=== PATIENT | male | born 1955 | race Caucasian/White ===

== ENCOUNTER 2016-12-22 18:31 | Emergency (ER) | payer OTHER ==
[~2016-12-22] VITALS: Ht 182.9 cm; Wt 74.4 kg
[2016-12-22] MEDS ORDERED: LABETALOL 20 MG/4 ML VIAL ONE (18:58)
[2016-12-22] MEDS ORDERED: LABETALOL 20 MG/4 ML VIAL IV ONE (19:00)
--- NOTE | 2016-12-22 19:02 | NUR ---
REPORT REC'D FROM MOISÉS DAMICO FOR [facility].
[2016-12-22 19:05] LABS: BASOPHILS % (AUTO) 0.5 % (0.0-2.0); EOSINOPHILS # (AUTO) 0.2 /CMM (0.0-0.7); EOSINOPHILS % (AUTO) 1.9 % (0.0-6.0); HEMATOCRIT 51 % (39-51); HEMOGLOBIN 16.6 g/dL (13.5-17.5); LYMPHOCYTES # (AUTO) 2.2 /CMM (0.8-4.8); LYMPHOCYTES % (AUTO) 23.7 % (20.0-44.0); MEAN CORPUSCULAR HEMOGLOBIN 28 PG (26.0-33.0); MEAN CORPUSCULAR HGB CONC 33 g/dl (31.0-36.0); MEAN CORPUSCULAR VOLUME 84 fL (80-96); MONOCYTES # (AUTO) 0.4 /CMM (0.1-1.30); MONOCYTES % (AUTO) 4.5 % (2.0-12.0); NEUTROPHILS # (AUTO) 6.7 /CMM (1.8-8.9); NEUTROPHILS % (AUTO) 69.4 % (43.0-81.0); PLATELET COUNT (AUTO) 247 /CMM (150-450); RDW COEFFICIENT OF VARIATION 13.7 (11.5-15.0); RED BLOOD CELL COUNT(AUTO) 5.98 MIL/uL (4.5-6.0); WHITE BLOOD COUNT (AUTO) 9.5 K/uL (4.3-11.0)
[2016-12-22 19:13] LABS: CALCIUM, SERUM 9.6 mg/dL (8.5-10.1); CREATININE 1.1 mg/dL (0.6-1.3); POTASSIUM 3.4 mmol/L (3.5-5.1)
--- NOTE | 2016-12-22 19:21 | NUR ---
PT STATED THAT HE FEELS BETTER. "MY HEADACHE IS GONE".
[2016-12-22 19:25] LABS: INR 1.06 (0.87-1.13); PROTHROMBIN TIME 11.4 SECS (9.5-12.7)
[2016-12-22 19:46] VITALS: BP 155/99
[2016-12-22] MEDS ORDERED: POTASSIUM CHLORIDE 20 MEQ TAB.PRT.SR PO ONE (20:00)
== END 2016-12-22 19:47 | disposition home or self-care (01) ==
LOC: ER 18:33
DX: I10 Essential (primary) hypertension (principal); E87.6 Hypokalemia; F17.200 Nicotine dependence, unspecified, uncomplicated; R79.1 Abnormal coagulation profile; Z87.442 Personal history of urinary calculi
CPT/HCPCS: 36415; 70450; 80048; 85025; 85730; 96374; 99285; A4606; J3490; Z7610

== ENCOUNTER 2017-09-17 20:43 | Emergency (ER) | payer OTHER ==
[~2017-09-17] VITALS: Ht 182.9 cm; Wt 74.8 kg
[2017-09-17 20:43] VITALS: BP 158/94
[2017-09-17 21:25] LABS: BASOPHILS # (AUTO) 0.2 /CMM (0.0-0.2); BASOPHILS % (AUTO) 1.4 % (0.0-2.0); EOSINOPHILS % (AUTO) 0.2 % (0.0-6.0); HEMATOCRIT 45 % (39-51); HEMOGLOBIN 15.2 g/dL (13.5-17.5); MEAN CORPUSCULAR HEMOGLOBIN 28 PG (26.0-33.0); MEAN CORPUSCULAR HGB CONC 34 g/dl (31.0-36.0); MEAN CORPUSCULAR VOLUME 83 fL (80-96); MONOCYTES # (AUTO) 0.8 /CMM (0.1-1.30); MONOCYTES % (AUTO) 6.9 % (2.0-12.0); NEUTROPHILS # (AUTO) 10.3 /CMM (1.8-8.9); NEUTROPHILS % (AUTO) 83.5 % (43.0-81.0); PLATELET COUNT (AUTO) 292 /CMM (150-450); RDW COEFFICIENT OF VARIATION 13.2 (11.5-15.0); RED BLOOD CELL COUNT(AUTO) 5.48 MIL/uL (4.5-6.0); WHITE BLOOD COUNT (AUTO) 12.3 K/uL (4.3-11.0)
[2017-09-17] MEDS ORDERED: CEFTRIAXONE 1GM BAG (ER ONLY) 50 ML IV ONE (21:30)
[2017-09-17] MEDS ORDERED: IPRATROPIUM NEB FS 0.5 MG/2.5 ML AMPUL.NEB NEB ONE (21:30)
[2017-09-17] MEDS ORDERED: HYDROCODONE BIT/HOMATROPINE 5 ML UDC PO ONE (21:30)
[2017-09-17] MEDS ORDERED: IV NS 0.9% 1,000 ML BAG IV ONE (21:30)
[2017-09-17] MEDS ORDERED: methylPREDNISolone SOD SUCC 125 MG/2ML VIAL IV ONE (21:30)
[2017-09-17] MEDS ORDERED: AZITHROMYCIN 500 MG in IV D5W 250 ML IV ONE (21:30)
[2017-09-17] MEDS ORDERED: ALBUTEROL FS 2.5 MG/3 ML VIAL.NEB CONTNEB ONE (21:30)
[2017-09-17] MEDS ORDERED: ONDANSETRON HCL/PF 4 MG/2 ML VIAL IVP ONE (21:30)
[2017-09-17] MEDS ORDERED: ACETAMINOPHEN ES 500 MG TABLET PO ONE (21:30)
[2017-09-17 21:31] LABS: CALCIUM, SERUM 9.5 mg/dL (8.5-10.1); CARBON DIOXIDE 25 mmol/L (21-32); CHLORIDE 104 mmol/L (98-107); CREATININE 1.4 mg/dL (0.6-1.3); GLUCOSE 94 mg/dL (74-106); POTASSIUM 3.8 mmol/L (3.5-5.1); SODIUM SERUM 138 mmol/L (136-145); UREA NITROGEN, BLOOD 20 mg/dL (7-18)
[2017-09-17 21:39] LABS: TROPONIN I < 0.017 ng/mL (0.00-0.056)
[2017-09-17 21:44] LABS: ALANINE AMINOTRANSFERASE 14 U/L (12-78); ALBUMIN 3.7 g/dL (3.4-5.0); ALKALINE PHOSPHATASE 63 U/L (46-116); ASPARTATE AMINOTRANSFERASE 20 U/L (15-37); B-TYPE NATRIURETIC PEPTIDE 357 PG/ML (0-125); BILIRUBIN,DIRECT 0.1 mg/dL (0.0-0.2); BILIRUBIN,TOTAL 0.6 mg/dL (0.2-1.0)
[2017-09-17] MEDS ORDERED: methylPREDNISolone SOD SUCC 125 MG/2ML VIAL ONE (21:46)
[2017-09-17] MEDS ORDERED: ONDANSETRON HCL/PF 4 MG/2 ML VIAL ONE (21:46)
[2017-09-17] MEDS ORDERED: ACETAMINOPHEN ES 500 MG TABLET ONE (21:46)
[2017-09-17] MEDS ORDERED: CEFTRIAXONE 1 G VIAL ONE (21:46)
[2017-09-17] MEDS ORDERED: ALBUTEROL FS 2.5 MG/3 ML VIAL.NEB ONE (21:52)
--- NOTE | 2017-09-17 21:54 | NUR ---
COREY, EMT CALLED AND SPOKJE WITH PT'S FAMILY. PT DECIDED TO GET SERVICE AT ANOTHER HOSPITAL
--- NOTE | 2017-09-17 21:54 | NUR ---
Patient eloped from facility. ER MD notified.
--- NOTE | 2017-09-17 22:05 | NUR ---
MED ERROR. PT LEFT BEFORE ADMIN OF 10MG ALBUTEROL RESP TX. Addendum: 09/17/17 at 2205 by ARNOLDO ZARATE RT Amended: Links added.
== END 2017-09-17 21:56 | disposition left against medical advice (07) ==
LOC: ER 20:44
DX: R07.89 Other chest pain (principal); B34.9 Viral infection, unspecified; J06.9 Acute upper respiratory infection, unspecified; I10 Essential (primary) hypertension; F17.200 Nicotine dependence, unspecified, uncomplicated; Z87.442 Personal history of urinary calculi
CPT/HCPCS: 36415; 71045; 80048; 80076; 83880; 84484; 85025; 87040 ×2; 93005; 99285; A4606; J0696; J7030; J7060; Z7610; J2405; J2930

== ENCOUNTER 2020-10-31 12:51 | Emergency (ER) | payer OTHER ==
[~2020-10-31] VITALS: Ht 182.9 cm; Wt 73.9 kg
--- NOTE | 2020-10-31 12:55 | NUR ---
pt bib son c/o headache and been noticing that his blood pressure always high w/ systolic over 200. pt denies any weakness. but states was dizzy earlier. no neuro deficit noted upon initial assessment. awaitng md carlton.
--- NOTE | 2020-10-31 13:00 | NUR ---
dr east at bedside for eval.
--- NOTE | 2020-10-31 13:15 | NUR ---
pt to radiology for head ct scan via wheelchair.
--- NOTE | 2020-10-31 13:54 | NUR ---
laboratory animal caretaker at bedside for blood draw.
[2020-10-31] MEDS ORDERED: CLONIDINE HCL 0.1 MG TABLET ONE (13:55)
[2020-10-31] MEDS ORDERED: ACETAMINOPHEN ES 500 MG TABLET ONE (13:55)
[2020-10-31 13:59] LABS: BASOPHILS # (AUTO) 0.1 /CMM (0.0-0.2); BASOPHILS % (AUTO) 0.6 % (0.0-2.0); EOSINOPHILS % (AUTO) 0.4 % (0.0-6.0); HEMATOCRIT 47 % (39-51); HEMOGLOBIN 15.5 g/dL (13.5-17.5); LYMPHOCYTES # (AUTO) 1.7 /CMM (0.8-4.8); LYMPHOCYTES % (AUTO) 15.9 % (20.0-44.0); MEAN CORPUSCULAR HGB CONC 33 g/dl (31.0-36.0); MEAN CORPUSCULAR VOLUME 87 fL (80-96); MONOCYTES # (AUTO) 0.3 /CMM (0.1-1.30); MONOCYTES % (AUTO) 3.1 % (2.0-12.0); NEUTROPHILS # (AUTO) 8.7 /CMM (1.8-8.9); PLATELET COUNT (AUTO) 246 /CMM (150-450); RED BLOOD CELL COUNT(AUTO) 5.43 MIL/uL (4.5-6.0); WHITE BLOOD COUNT (AUTO) 10.9 K/uL (4.3-11.0)
[2020-10-31] MEDS: ACETAMINOPHEN 325 MG TABLET PO ONE (14:13)
[2020-10-31] MEDS: CLONIDINE HCL 0.1 MG TABLET PO ONE (14:13)
[2020-10-31 14:18] LABS: ALANINE AMINOTRANSFERASE 23 U/L (12-78); ALKALINE PHOSPHATASE 73 U/L (46-116); ASPARTATE AMINOTRANSFERASE 31 U/L (15-37); BILIRUBIN,DIRECT 0.1 mg/dL (0.0-0.2); BILIRUBIN,TOTAL 0.4 mg/dL (0.2-1.0); CALCIUM, SERUM 9.2 mg/dL (8.5-10.1); CARBON DIOXIDE 31 mmol/L (21-32); CHLORIDE 104 mmol/L (98-107); CREATININE 1.3 mg/dL (0.6-1.3); GLUCOSE 96 mg/dL (74-106); POTASSIUM 4.2 mmol/L (3.5-5.1); SODIUM SERUM 143 mmol/L (136-145); TOTAL PROTEIN, SERUM 7.8 g/dL (6.4-8.2); UREA NITROGEN, BLOOD 23 mg/dL (7-18)
--- NOTE | 2020-10-31 15:47 | NUR ---
Patient discharged to home in stable condition. Written and verbal after care instructions given. Patient verbalizes understanding of instruction.
[2020-10-31 15:48] VITALS: BP 155/90
== END 2020-10-31 15:49 | disposition home or self-care (01) ==
LOC: ER 12:53
DX: I10 Essential (primary) hypertension (principal); R51.9 Headache, unspecified; R42 Dizziness and giddiness; R00.1 Bradycardia, unspecified; F10.10 Alcohol abuse, uncomplicated; F17.200 Nicotine dependence, unspecified, uncomplicated; Y90.9 Presence of alcohol in blood, level not specified; Z79.82 Long term (current) use of aspirin; Z87.442 Personal history of urinary calculi; Z98.890 Other specified postprocedural states
CPT/HCPCS: 36415; 70450-TC; 71045-TC; 80048-TC; 80076-TC; 84484-TC; 85025-TC

== ENCOUNTER 2021-10-10 13:02 | Emergency (ER) | payer OTHER ==
[~2021-10-10] VITALS: Ht 180.3 cm; Wt 72.6 kg
[2021-10-10 13:19] VITALS: BP 156/102
[2021-10-10] MEDS ORDERED: TDAP [DIPH/PERTUSSIS/TET] 0.5 ML VIAL IM ONE (14:30)
== END 2021-10-10 14:33 | disposition home or self-care (01) ==
LOC: ER 13:05
DX: S61.211A Laceration without foreign body of left index finger without damage to nail, initial encounter (principal); I10 Essential (primary) hypertension; F17.200 Nicotine dependence, unspecified, uncomplicated; Z87.442 Personal history of urinary calculi; W26.8XXA Contact with other sharp object(s), not elsewhere classified, initial encounter; Y93.89 Activity, other specified; Y92.89 Other specified places as the place of occurrence of the external cause; Y99.8 Other external cause status

== ENCOUNTER 2024-11-17 10:31 | Inpatient (IN) | payer MEDICARE, OTHER ==
[~2024-11-17] VITALS: Ht 180.3 cm; Wt 73.7 kg
[~2024-11-17 10:31] MED LIST: AMLO-212 PO; ASPI-1420 PO; CARV6.252 PO; FINA5TAB11 PO; HYDR-4076 PO; HYDR-4077 PO; METO25TA20 PO; NIFE-35 PO; NITR0.4T48 SL; PANT40TA49 PO; SIMV-49 PO; TAMS-12 PO
[2024-11-17 10:52] LABS: BASOPHILS % (AUTO) 0.6 % (0.0-2.0); EOSINOPHILS # (AUTO) 0.2 K/uL (0.0-0.7); EOSINOPHILS % (AUTO) 2.4 % (0.0-6.0); HEMATOCRIT 49 % (39-51); LYMPHOCYTES # (AUTO) 1.7 K/uL (0.8-4.8); LYMPHOCYTES % (AUTO) 26.6 % (20.0-44.0); MEAN CORPUSCULAR HEMOGLOBIN 28 PG (26.0-33.0); MEAN CORPUSCULAR HGB CONC 33 g/dl (31.0-36.0); MEAN CORPUSCULAR VOLUME 86 fL (80-96); MONOCYTES # (AUTO) 0.3 K/uL (0.1-1.30); MONOCYTES % (AUTO) 4.5 % (2.0-12.0); NEUTROPHILS # (AUTO) 4.2 K/uL (1.8-8.9); NEUTROPHILS % (AUTO) 65.9 % (43.0-81.0); PLATELET COUNT (AUTO) 288 K/uL (150-450); RED BLOOD CELL COUNT(AUTO) 5.71 MIL/uL (4.5-6.0); RED CELL DISTRIBUTION WIDTH 14.4 % (11.5-15.0); WHITE BLOOD COUNT (AUTO) 6.4 K/uL (4.3-11.0)
[2024-11-17 11:02] LABS: CALCIUM, SERUM 9.1 mg/dL (8.5-10.1); CARBON DIOXIDE 30 mmol/L (21-32); CHLORIDE 107 mmol/L (98-107); CREATININE 2.1 mg/dL (0.6-1.3); GLUCOSE 155 mg/dL (74-106); POTASSIUM 4.2 mmol/L (3.5-5.1); SODIUM SERUM 141 mmol/L (136-145); UREA NITROGEN, BLOOD 21 mg/dL (7-18)
[2024-11-17] MEDS ORDERED: NITR0.4T48 SL (11:52)
[2024-11-17] MEDS ORDERED: CARV6.252 PO (11:52)
[2024-11-17] MEDS ORDERED: HYDR-4077 PO (11:52)
[2024-11-17] MEDS ORDERED: Z GUARD REMEDY 4 OZ OINT TP PRN (12:00)
[2024-11-17] MEDS ORDERED: MAGNESIUM HYDROXIDE 30 ML UDC PO PRN (12:00)
[2024-11-17] MEDS ORDERED: ONDANSETRON HCL/PF 4 MG/2 ML VIAL IVP PRN (12:00)
[2024-11-17] MEDS ORDERED: MAG HYDROX/AL HYDROX/SIMETH 30 ML UDC PO PRN (12:00)
[2024-11-17] MEDS ORDERED: MAG HYDROX/AL HYDROX/SIMETH 30 ML UDC ONE (12:03)
[2024-11-17] MEDS ORDERED: FAMOTIDINE/PF INJ 20 MG/2 ML VIAL IV ONE (12:04)
[2024-11-17] MEDS ORDERED: ASPIRIN 81 MG TAB.CHEW ONE ×2 (12:04→12:16)
[2024-11-17] MEDS ORDERED: LIDOCAINE VISCOUS 2% UD 15 ML UDC ONE (12:04)
[2024-11-17] MEDS: FAMOTIDINE/PF INJ 20 MG/2 ML VIAL IV ONE (12:12)
[2024-11-17] MEDS: MAG HYDROX/AL HYDROX/SIMETH 30 ML UDC PO ONE (12:13)
[2024-11-17] MEDS: LIDOCAINE VISCOUS 2% UD 15 ML UDC MM ONE (12:13)
[2024-11-17] MEDS: ASPIRIN 81 MG TAB.CHEW PO ONE (12:25)
[2024-11-17] MEDS: CARVEDILOL 6.25 MG TABLET PO SCH (14:00)
[2024-11-17] MEDS: ASPIRIN EC 81 MG TABLET.DR PO SCH (17:39)
[2024-11-17] MEDS: hydrALAZINE HCL 50 MG TABLET PO SCH (17:39)
[2024-11-17] MEDS: FAMOTIDINE (20 MG) 20 MG TABLET PO SCH (17:41)
[2024-11-17] MEDS: FINASTERIDE (5 MG) 5 MG TABLET PO SCH (17:41)
[2024-11-17] MEDS: AMLODIPINE BESYLATE 5 MG TABLET PO SCH (17:41)
[2024-11-17] MEDS: IV NS 0.9% 1,000 ML BAG IV PRN (17:42)
[2024-11-17 20:00] VITALS: BP 160/90; TEMP 98.4; O2SAT 100
[2024-11-18] VITALS: BP 168/80; TEMP 98.1; O2SAT 98
[2024-11-18 05:00] VITALS: BP 130/80; TEMP 97.7; O2SAT 96
[2024-11-18 06:11] LABS: BASOPHILS # (AUTO) 0.1 K/uL (0.0-0.2); BASOPHILS % (AUTO) 0.9 % (0.0-2.0); EOSINOPHILS # (AUTO) 0.2 K/uL (0.0-0.7); EOSINOPHILS % (AUTO) 2.1 % (0.0-6.0); HEMATOCRIT 45 % (39-51); HEMOGLOBIN 14.9 g/dL (13.5-17.5); LYMPHOCYTES # (AUTO) 2.7 K/uL (0.8-4.8); LYMPHOCYTES % (AUTO) 31.1 % (20.0-44.0); MEAN CORPUSCULAR HEMOGLOBIN 29 PG (26.0-33.0); MEAN CORPUSCULAR HGB CONC 33 g/dl (31.0-36.0); MEAN CORPUSCULAR VOLUME 86 fL (80-96); MONOCYTES # (AUTO) 0.6 K/uL (0.1-1.30); MONOCYTES % (AUTO) 7.4 % (2.0-12.0); NEUTROPHILS % (AUTO) 58.5 % (43.0-81.0); PLATELET COUNT (AUTO) 244 K/uL (150-450); RED BLOOD CELL COUNT(AUTO) 5.22 MIL/uL (4.5-6.0); RED CELL DISTRIBUTION WIDTH 14.2 % (11.5-15.0); WHITE BLOOD COUNT (AUTO) 8.5 K/uL (4.3-11.0)
[2024-11-18 06:26] LABS: CALCIUM, SERUM 8.8 mg/dL (8.5-10.1); CREATININE 1.6 mg/dL (0.6-1.3); PHOSPHORUS 3.6 mg/dL (2.5-4.9)
[2024-11-18 07:00] VITALS: BP 156/88; TEMP 97.5; O2SAT 97
[2024-11-18] MEDS ORDERED: AMLODIPINE BESYLATE 5 MG TABLET PO SCH (09:00)
[2024-11-18] MEDS ORDERED: ASPIRIN 81 MG TAB.CHEW PO SCH (09:00)
[2024-11-18] MEDS: AMLODIPINE BESYLATE 5 MG TABLET PO ONE (09:31)
[2024-11-18] MEDS: ATORVASTATIN 40 MG TABLET PO SCH (09:31)
[2024-11-18] MEDS: ISOSORBIDE DINITRATE (20MG) 20 MG TABLET PO SCH (09:32)
[2024-11-18] MEDS: IV NS 0.9% 1,000 ML IV PRN (09:55)
[2024-11-18 11:37] VITALS: BP 119/91; TEMP 97.7; O2SAT 97
[2024-11-18] MEDS: hydrALAZINE HCL 50 MG TABLET PO SCH (13:16)
[2024-11-18 16:00] VITALS: BP 133/86; TEMP 97.7; O2SAT 97
[2024-11-18] MEDS: ACETAMINOPHEN 325 MG TABLET PO PRN (16:14)
[2024-11-18 20:00] VITALS: BP 124/66; TEMP 98.1; O2SAT 96
[2024-11-19] VITALS: BP 114/66; TEMP 97.7; O2SAT 96
[2024-11-19 04:00] VITALS: BP 125/69; TEMP 97.9; O2SAT 95
[2024-11-19 06:20] LABS: BASOPHILS % (AUTO) 0.5 % (0.0-2.0); EOSINOPHILS # (AUTO) 0.2 K/uL (0.0-0.7); EOSINOPHILS % (AUTO) 2.3 % (0.0-6.0); HEMATOCRIT 41 % (39-51); HEMOGLOBIN 13.5 g/dL (13.5-17.5); LYMPHOCYTES # (AUTO) 2.7 K/uL (0.8-4.8); LYMPHOCYTES % (AUTO) 30.9 % (20.0-44.0); MEAN CORPUSCULAR HEMOGLOBIN 29 PG (26.0-33.0); MEAN CORPUSCULAR HGB CONC 33 g/dl (31.0-36.0); MEAN CORPUSCULAR VOLUME 86 fL (80-96); MONOCYTES # (AUTO) 0.7 K/uL (0.1-1.30); MONOCYTES % (AUTO) 7.6 % (2.0-12.0); NEUTROPHILS # (AUTO) 5.1 K/uL (1.8-8.9); NEUTROPHILS % (AUTO) 58.7 % (43.0-81.0); PLATELET COUNT (AUTO) 240 K/uL (150-450); RED BLOOD CELL COUNT(AUTO) 4.73 MIL/uL (4.5-6.0); RED CELL DISTRIBUTION WIDTH 13.8 % (11.5-15.0); WHITE BLOOD COUNT (AUTO) 8.7 K/uL (4.3-11.0)
[2024-11-19 06:46] LABS: ALBUMIN 3.1 g/dL (3.4-5.0); BILIRUBIN,TOTAL 0.5 mg/dL (0.2-1.0); CALCIUM, SERUM 8.8 mg/dL (8.5-10.1); CREATININE 1.8 mg/dL (0.6-1.3); TOTAL PROTEIN, SERUM 5.9 g/dL (6.4-8.2)
[2024-11-19] MEDS: AMLODIPINE BESYLATE 5 MG TABLET PO SCH (09:13)
[2024-11-19 09:27] VITALS: BP 147/89; TEMP 97.8; O2SAT 97
[2024-11-19] MEDS ORDERED: AMLO-212 PO (11:44)
[2024-11-19] MEDS ORDERED: HYDR-4077 PO (11:44)
[2024-11-19] MEDS ORDERED: FINA5TAB3 PO (11:44)
[2024-11-19] MEDS ORDERED: ATOR40TA PO (11:44)
[2024-11-19] MEDS ORDERED: CARV6.252 PO (11:44)
[2024-11-19] MEDS ORDERED: Aspirin Ec PO (11:44)
[2024-11-19] MEDS ORDERED: FAMO20TA80 PO (11:44)
[2024-11-19] MEDS ORDERED: ISOS40TA19 PO (11:44)
[2024-11-19 12:53] VITALS: BP 143/91; TEMP 98.9; O2SAT 96
[2024-11-19 13:39] VITALS: BP 140/74
== END 2024-11-19 15:18 | disposition home or self-care (01) | DRG 391 ==
LOC: ER 10:35 → TRANSITION 12:23 → TELE 15:50
PROVIDERS: ADMIT Nurse Practitioner Acute Care; ATTEND Nurse Practitioner Acute Care
DX: K21.9 Gastro-esophageal reflux disease without esophagitis (principal); N17.0 Acute kidney failure with tubular necrosis; I13.0 Hypertensive heart and chronic kidney disease with heart failure and stage 1 through stage 4 chronic kidney disease, or unspecified chronic kidney disease; N40.0 Benign prostatic hyperplasia without lower urinary tract symptoms; N18.9 Chronic kidney disease, unspecified; E86.0 Dehydration; Z71.6 Tobacco abuse counseling; Z87.442 Personal history of urinary calculi; Z79.82 Long term (current) use of aspirin; Z79.899 Other long term (current) drug therapy; E78.5 Hyperlipidemia, unspecified; F17.210 Nicotine dependence, cigarettes, uncomplicated
CPT/HCPCS: 36415; 71045-TC; 76770-TC; 80048-TC; 80053-TC; 83735-TC; 84100-TC; 84484-TC; 85025-TC; 93307-TC; 97112-TC; 97116-TC; 97530-TC; A4223; G0378; J3490; J7030

== ENCOUNTER 2024-12-15 10:29 | Outpatient (CLI) | payer MEDICARE, OTHER ==
[~2024-12-15 10:29] MED LIST changes: -ASPI-1420 PO; +ATOR40TA PO; +Aspirin Ec PO; +FAMO20TA80 PO; -FINA5TAB11 PO; +FINA5TAB3 PO; -HYDR-4076 PO; +ISOS40TA19 PO; -METO25TA20 PO; -NIFE-35 PO; -PANT40TA49 PO; -SIMV-49 PO; -TAMS-12 PO
[2024-12-15 11:32] LABS: BASOPHILS # (AUTO) 0.1 K/uL (0.0-0.2); EOSINOPHILS # (AUTO) 0.2 K/uL (0.0-0.7); EOSINOPHILS % (AUTO) 2.9 % (0.0-6.0); HEMATOCRIT 45 % (39-51); HEMOGLOBIN 14.9 g/dL (13.5-17.5); LYMPHOCYTES # (AUTO) 2.1 K/uL (0.8-4.8); LYMPHOCYTES % (AUTO) 27.7 % (20.0-44.0); MEAN CORPUSCULAR HEMOGLOBIN 28 PG (26.0-33.0); MEAN CORPUSCULAR HGB CONC 33 g/dl (31.0-36.0); MEAN CORPUSCULAR VOLUME 86 fL (80-96); MONOCYTES # (AUTO) 0.4 K/uL (0.1-1.30); NEUTROPHILS # (AUTO) 4.6 K/uL (1.8-8.9); NEUTROPHILS % (AUTO) 62.4 % (43.0-81.0); PLATELET COUNT (AUTO) 271 K/uL (150-450); RED BLOOD CELL COUNT(AUTO) 5.23 MIL/uL (4.5-6.0); RED CELL DISTRIBUTION WIDTH 14.8 % (11.5-15.0); WHITE BLOOD COUNT (AUTO) 7.4 K/uL (4.3-11.0)
[2024-12-15 11:43] LABS: ALBUMIN 3.9 g/dL (3.4-5.0); BILIRUBIN,TOTAL 0.5 mg/dL (0.2-1.0); CALCIUM, SERUM 9.1 mg/dL (8.5-10.1); CREATININE 1.8 mg/dL (0.6-1.3); POTASSIUM 4.4 mmol/L (3.5-5.1); TOTAL PROTEIN, SERUM 7.5 g/dL (6.4-8.2)
[2024-12-15 11:47] LABS: INR 1.05 (0.91-1.10); PROTHROMBIN TIME 11.1 SECS (9.2-11.1)
== END 2024-12-15 23:59 | disposition home or self-care (01) ==
LOC: LAB 10:29
PROVIDERS: ATTEND Internal Medicine Interventional Cardiology
DX: Z01.812 Encounter for preprocedural laboratory examination (principal); D68.9 Coagulation defect, unspecified
CPT/HCPCS: 36415; 80053-TC; 85025-TC; 85610-TC

== ENCOUNTER 2025-01-05 08:10 | Inpatient (IN) | payer MEDICARE, OTHER ==
[~2025-01-05] VITALS: Ht 180.3 cm; Wt 73.5 kg
[2025-01-05] MEDS ORDERED: VANCOMYCIN 1 GM VIAL ONE (09:25)
[2025-01-05] MEDS ORDERED: LIDOCAINE 2%-EPI 1:100,000 30 ML VIAL ONE (09:25)
[2025-01-05] MEDS ORDERED: OXYMETAZOLINE HCL NASAL SPRAY 30 ML BOTTLE NS ONE (09:25)
[2025-01-05] MEDS ORDERED: dexaMETHasone SOD PHOSPHATE 2 ML ONE (09:25)
[2025-01-05] MEDS ORDERED: dexaMETHasone SOD PHOSPHATE 4 MG/ML VIAL ONE (09:25)
[2025-01-05] MEDS ORDERED: LIDOCAINE 2% JEL UROJET 10 ML MM ONE (09:31)
[2025-01-05] MEDS ORDERED: ALBUTEROL SULFATE 8 GM HFA.AER.AD ONE (09:32)
[2025-01-05] MEDS ORDERED: MIDAZOLAM HCL 2 MG/2ML VIAL ONE (09:32)
[2025-01-05] MEDS ORDERED: FAMOTIDINE/PF INJ 20 MG/2 ML VIAL IV ONE (09:32)
[2025-01-05] MEDS ORDERED: FENTANYL PF 100MCG/2ML AMPUL ONE (09:32)
[2025-01-05] MEDS ORDERED: ROCURONIUM BROMIDE 50 MG/5 ML ONE (09:32)
[2025-01-05] MEDS ORDERED: hydrALAZINE HCL IV 20 MG VIAL IV PRN (12:00)
[2025-01-05] MEDS ORDERED: ALBUTEROL FS 2.5 MG/3 ML VIAL.NEB NEB PRN (12:00)
[2025-01-05] MEDS ORDERED: NITROGLYCERIN 0.4 MG/HR PATCH.TD24 TD SCH (12:00)
[2025-01-05] MEDS ORDERED: HYDROMORPHONE 1 MG/1 ML DISP.SYRIN IV PRN (12:00)
[2025-01-05] MEDS ORDERED: FLUMAZENIL 0.5 MG VIAL ONE (12:24)
[2025-01-05 13:45] VITALS: BP 141/90; TEMP 97.3; O2SAT 97
[2025-01-05] MEDS ORDERED: ASPI-1169 PO (14:25)
[2025-01-05] MEDS ORDERED: FINA5TAB11 PO (14:25)
[2025-01-05] MEDS ORDERED: ERGO500093 PO (14:25)
[2025-01-05] MEDS ORDERED: CARV6.25 PO (14:25)
[2025-01-05] MEDS ORDERED: ZOLPIDEM TARTRATE 5 MG TABLET PO PRN (15:00)
[2025-01-05] MEDS ORDERED: Z GUARD REMEDY 4 OZ OINT TP PRN (15:00)
[2025-01-05] MEDS ORDERED: ACETAMINOPHEN 325 MG TABLET PO PRN ×2 (15:00→15:30)
[2025-01-05] MEDS ORDERED: NITROGLYCERIN 0.4 MG/TAB BOTTLE SL PRN (15:00)
[2025-01-05] MEDS ORDERED: ONDANSETRON HCL/PF 4 MG/2 ML VIAL IVP PRN ×2 (15:00→15:30)
[2025-01-05] MEDS ORDERED: MAGNESIUM HYDROXIDE 30 ML UDC PO PRN (15:00)
[2025-01-05] MEDS ORDERED: MAG HYDROX/AL HYDROX/SIMETH 30 ML UDC PO PRN (15:00)
[2025-01-05] MEDS ORDERED: ALBUTEROL FS 2.5 MG/0.5 ML VIAL.NEB NEB SCH (15:30)
[2025-01-05] MEDS ORDERED: HYDROMORPHONE INJ 2 MG/ML DISP.SYRIN IV PRN (15:30)
[2025-01-05] MEDS: IV NS 0.9% 1,000 ML IV PRN (15:57)
[2025-01-05 16:13] VITALS: BP 134/85; TEMP 97.5; O2SAT 96
[2025-01-05] MEDS: CARVEDILOL 6.25 MG TABLET PO SCH (16:50)
[2025-01-05 20:00] VITALS: BP 165/92; TEMP 97.7; O2SAT 96
[2025-01-05] MEDS: hydrALAZINE HCL 50 MG TABLET PO SCH (21:20)
[2025-01-05] MEDS: VANCOMYCIN 1 GM in IV D5W 250ml IV SCH (21:20)
[2025-01-06 04:00] VITALS: BP 129/71; TEMP 98.2; O2SAT 95
[2025-01-06 07:59] LABS: BASOPHILS % (AUTO) 0.1 % (0.0-2.0); HEMATOCRIT 44 % (39-51); HEMOGLOBIN 14.2 g/dL (13.5-17.5); LYMPHOCYTES # (AUTO) 1.4 K/uL (0.8-4.8); LYMPHOCYTES % (AUTO) 10.9 % (20.0-44.0); MEAN CORPUSCULAR HEMOGLOBIN 28 PG (26.0-33.0); MEAN CORPUSCULAR HGB CONC 33 g/dl (31.0-36.0); MEAN CORPUSCULAR VOLUME 86 fL (80-96); MONOCYTES # (AUTO) 0.6 K/uL (0.1-1.30); MONOCYTES % (AUTO) 4.5 % (2.0-12.0); NEUTROPHILS # (AUTO) 11.2 K/uL (1.8-8.9); NEUTROPHILS % (AUTO) 84.5 % (43.0-81.0); PLATELET COUNT (AUTO) 216 K/uL (150-450); RED BLOOD CELL COUNT(AUTO) 5.04 MIL/uL (4.5-6.0); RED CELL DISTRIBUTION WIDTH 14.4 % (11.5-15.0); WHITE BLOOD COUNT (AUTO) 13.3 K/uL (4.3-11.0)
[2025-01-06 08:00] VITALS: BP 172/94; TEMP 97.9; O2SAT 97
[2025-01-06] MEDS: ASPIRIN 81 MG TAB.CHEW PO SCH (08:45)
[2025-01-06] MEDS: FINASTERIDE (5 MG) 5 MG TABLET PO SCH (08:45)
[2025-01-06 09:33] LABS: CALCIUM, SERUM 9.4 mg/dL (8.5-10.1); CREATININE 1.6 mg/dL (0.6-1.3); PHOSPHORUS 4.1 mg/dL (2.5-4.9); POTASSIUM 4.6 mmol/L (3.5-5.1)
[2025-01-06] MEDS: hydrALAZINE HCL 25 MG TABLET PO ONE ×2 (09:55→16:14)
[2025-01-06] MEDS: CLONIDINE HCL 0.1 MG TABLET PO ONE (14:53)
[2025-01-06 16:14] VITALS: BP 175/85
== END 2025-01-06 17:15 | disposition left against medical advice (07) | DRG 497 ==
LOC: DS 08:10 → MED 13:43
PROVIDERS: ADMIT Student in an Organized Health Care Education/Training Program; ATTEND Student in an Organized Health Care Education/Training Program
PROC: 0NPW04Z Removal of Internal Fixation Device from Facial Bone, Open Approach (ICD-10-PCS; 2025-01-05)
PROC: 0WB30ZZ Excision of Oral Cavity and Throat, Open Approach (ICD-10-PCS; principal; 2025-01-05 10:15)
DX: T84.69XA Infection and inflammatory reaction due to internal fixation device of other site, initial encounter (principal); Y83.8 Other surgical procedures as the cause of abnormal reaction of the patient, or of later complication, without mention of misadventure at the time of the procedure; Y92.009 Unspecified place in unspecified non-institutional (private) residence as the place of occurrence of the external cause; I12.9 Hypertensive chronic kidney disease with stage 1 through stage 4 chronic kidney disease, or unspecified chronic kidney disease; N18.9 Chronic kidney disease, unspecified; N40.0 Benign prostatic hyperplasia without lower urinary tract symptoms; Z53.29 Procedure and treatment not carried out because of patient's decision for other reasons; Z87.442 Personal history of urinary calculi; Z72.0 Tobacco use; D72.829 Elevated white blood cell count, unspecified; E78.5 Hyperlipidemia, unspecified; K12.30 Oral mucositis (ulcerative), unspecified; K13.70 Unspecified lesions of oral mucosa; D10.30 Benign neoplasm of unspecified part of mouth; J32.0 Chronic maxillary sinusitis
CPT/HCPCS: 36415; 80048-TC; 83735-TC; 84100-TC; 85025-TC; A4223; G0378; J1100; J1308; J2250; J2405; J2704; J2765; J3010; J3370; J3490; J7030; J7040; J7060